=== PATIENT | female | born 1970 | race Caucasian/White ===

== ENCOUNTER 2017-01-21 11:10 | Day surgery (SDC) | payer OTHER ==
[~2017-01-21] VITALS: Ht 160 cm; Wt 92.9 kg
[~2017-01-21 11:10] MED LIST: ACET325T26 PO; BUPIVACAINE/PF 0.5% ONE; FERR325T17 PO; IBUP-1484 PO; LACT1CAP40 PO; MULT-224 PO; NAPR220C PO; QUIL PO
[2017-01-21 11:50] VITALS: BP 110/71
[2017-01-21] MEDS ORDERED: LACTATED RINGERS 1,000 ML IV SCH (11:53)
[2017-01-21] MEDS ORDERED: FENTANYL PF 100 MCG/2ML ONE ×2 (12:03→14:06)
[2017-01-21] MEDS ORDERED: MIDAZOLAM 1 MG/ML, 2ML ONE (12:03)
[2017-01-21] MEDS ORDERED: ROCURONIUM 10 MG/ML,10ML ONE (13:02)
[2017-01-21] MEDS ORDERED: CEFAZOLIN 1,000 MG ONE (13:02)
[2017-01-21] MEDS ORDERED: ONDANSETRON 2MG/ML, 2ML ONE (13:02)
[2017-01-21] MEDS ORDERED: DEXAMETHASONE 4 MG/ML, 5ML ONE (13:02)
[2017-01-21] MEDS ORDERED: SUCCINYLCHOLINE 20 MG/ML, 10ML ONE (13:02)
[2017-01-21] MEDS ORDERED: PROPOFOL 10 MG/ML, 20ML ONE (13:02)
[2017-01-21] MEDS ORDERED: HYDROmorphone 1 MG/ML, 1ML IV PRN (14:00)
[2017-01-21] MEDS ORDERED: OXYcodone/APAP 5/325MG TABLET PO PRN (14:00)
[2017-01-21] MEDS ORDERED: morphine SULFATE 10 MG/ML, 1ML IVPush PRN (14:00)
[2017-01-21] MEDS ORDERED: KETOROLAC 30 MG/1 ML IVPush PRN (14:00)
[2017-01-21] MEDS ORDERED: DIAZEPAM 5 MG/ML, 2ML IVPush PRN (14:00)
[2017-01-21] MEDS ORDERED: ACETAMINOPHEN 325 MG TABLET PO PRN (14:00)
[2017-01-21] MEDS ORDERED: PROMETHAZINE 25 MG/ML, 1ML IV PRN (14:00)
[2017-01-21] MEDS ORDERED: OXYcodone 5 MG/5 ML ORAL.SOL UDC PO PRN (14:00)
[2017-01-21] MEDS ORDERED: ONDANSETRON 2MG/ML, 2ML IVPush PRN (14:00)
[2017-01-21] MEDS ORDERED: KETOROLAC 30 MG/1 ML IV PRN (14:00)
[2017-01-21] MEDS ORDERED: MEPERIDINE/PF 25MG/0.5ML IVPush PRN (14:00)
[2017-01-21] MEDS ORDERED: ACETAMINOPHEN 650 MG/20.3 ML UDC ONE (14:05)
[2017-01-21] MEDS ORDERED: KETOROLAC 30 MG/1 ML ONE (14:06)
[2017-01-21] MEDS ORDERED: OXYcodone 5 MG/5 ML ORAL.SOL UDC ONE (14:06)
[2017-01-21] MEDS: FENTANYL PF 100 MCG/2ML IV PRN ×3 (14:08→14:30)
[2017-01-21] MEDS ORDERED: HYDROmorphone 2 MG/ML, 1ML ONE (14:36)
[2017-01-21] MEDS ORDERED: ONDANSETRON ODT 4 MG ONE (16:47)
[2017-01-21] MEDS ORDERED: ONDANSETRON ODT 4 MG PO ONE (17:00)
== END 2017-01-21 17:00 ==
LOC: OUT 11:10
PROVIDERS: ATTEND Surgery
DX: D17.0 Benign lipomatous neoplasm of skin and subcutaneous tissue of head, face and neck (principal); Z68.36 Body mass index [BMI] 36.0-36.9, adult; E66.9 Obesity, unspecified; Z88.1 Allergy status to other antibiotic agents; Z88.0 Allergy status to penicillin; Z88.8 Allergy status to other drugs, medicaments and biological substances
CPT/HCPCS: 21554; 88304; J0330; J0690; J1100; J1170; J1885; J2250; J2405; J2704; J3010; J3490; Q0162